=== PATIENT | male | born 1965 | race African-American/Black ===

== ENCOUNTER 2023-11-21 06:09 | Emergency (ER) | payer MEDICAID ==
[~2023-11-21] VITALS: Ht 175.3 cm; Wt 77.3 kg
[2023-11-21 07:01] VITALS: BP 116/88; PULSE 80; RESP 12; TEMP 97.8; O2SAT 100
[2023-11-21] MEDS ORDERED: KETOROLAC TROMETH 60MG/2ML VIAL IM ONE (07:15)
[2023-11-21] MEDS ORDERED: CEPH500C PO (08:02)
[2023-11-21] MEDS ORDERED: NAPR-746 PO (08:02)
== END 2023-11-21 08:11 | disposition home or self-care (01) ==
LOC: ER 06:09
DX: S80.02XA Contusion of left knee, initial encounter (principal); M70.52 Other bursitis of knee, left knee; E11.9 Type 2 diabetes mellitus without complications; Z79.899 Other long term (current) drug therapy; Z88.0 Allergy status to penicillin; V23.49XA Other motorcycle driver injured in collision with car, pick-up truck or van in traffic accident, initial encounter; Y93.89 Activity, other specified; Y92.410 Unspecified street and highway as the place of occurrence of the external cause; Y99.8 Other external cause status
CPT/HCPCS: 73562; 96372; 99283; J1885